=== PATIENT | female | born 1995 | race American Indian/Alaskan Native ===

== ENCOUNTER 2017-04-08 16:47 | Emergency (ER) | payer OTHER ==
[2017-04-08 16:48] VITALS: BMI 36.8
[2017-04-08 17:11] VITALS: O2SAT 100
[2017-04-08] MEDS ORDERED: Albuterol-Ipratrop 3 mg / 0.5 (3 ml) UD IH STA (17:13)
[2017-04-08] MEDS ORDERED: Sodium Chloride 0.9% 1,000 ML IV STA (17:16)
[2017-04-08 17:58] LABS: BASO # 0.01 K/mm3 (0.0-2.0); BASO % 0.1 % (0.0-3.0); EOS # 0.5 (0.0-0.7); EOS % 5.9 % (1.5-5.0); GRAN # 5.03 (1.4-6.5); GRAN % 60.8 % (50.0-68.0); HEMATOCRIT 37.6 % (36.0-48.0); LYMPH # 2.2 (1.2-3.4); LYMPH % 26.6 % (22.0-35.0); MEAN CELL VOLUME 79.5 fl (80.0-105.0); MEAN CORPUSCULAR HEMOGLOBIN 27.5 pg (25.0-35.0); MEAN CORPUSCULAR HGB CONC 34.6 g/dl (31.0-37.0); MEAN PLATELET VOLUME 9.4 fl (7.0-11.0); MONO # 0.6 (0.1-0.6); MONO % 6.6 % (1.0-6.0); RED CELL DISTRIBUTION WIDTH 13.8 % (11.5-14.5); WHITE BLOOD COUNT 8.3 10^3/ul (4.5-11.0)
[2017-04-08 18:00] LABS: ALB/GLOB RATIO 1.1 (1.1-1.8); ALKALINE PHOSPHATASE 87 U/L (38-126); ALT/SGPT 30 U/L (7-56); AST/SGOT 23 U/L (14-36); BILIRUBIN,TOTAL 0.6 mg/dL (0.2-1.3); BLOOD UREA NITROGEN 11 mg/dL (7-21); CALCIUM 9.2 mg/dL (8.4-10.5); CARBON DIOXIDE 27 mmol/L (21-33); CHLORIDE 102 mmol/L (98-107); GFR AFRICAN-AMERICAN > 60; GLUCOSE,RANDOM 88 mg/dL (70-110); POTASSIUM 3.7 mmol/L (3.6-5.0); SODIUM 139 mmol/L (132-148)
[2017-04-08 18:02] LABS: INR 1.06 (0.93-1.08); PARTIAL THROMBOPLASTIN TIME 32.9 Seconds (23.7-30.8)
[2017-04-08 18:13] LABS: TROPONIN I < 0.01 ng/mL
[2017-04-08 18:25] LABS: D DIMER 0.47 mg/L FEU (0-0.50)
[2017-04-08 19:06] VITALS: TEMP 98.9
[2017-04-08 19:18] LABS: URINE BILIRUBIN NEGATIVE (NEGATIVE); URINE BLOOD NEGATIVE (NEGATIVE); URINE GLUCOSE (UA) NEGATIVE (NEGATIVE); URINE KETONE NEGATIVE (NEGATIVE); URINE LEUKOCYTE ESTERASE TRACE Leu/uL (NEGATIVE); URINE PROTEIN TRACE mg/dL (<30 mg/dL)
[2017-04-08 19:27] LABS: URINE APPEARANCE SL CLOUDY (CLEAR); URINE COLOR YELLOW (YELLOW)
[2017-04-08 19:30] LABS: URINE BACTERIA MOD (NEG); URINE EPITHELIAL CELLS MANY /hpf (0-5); URINE RBC 0 - 2 /hpf (0-2)
--- NOTE | 2017-04-08 19:30 | ED PDOC ---
Arrival/HPI - General Chief Complaint: Shortness Of Breath Time Seen by Provider: 04/08/17 16:58 Historian: Patient - History of Present Illness Narrative History of Present Illness (Text): 04/08/17 19:31 A 22 year old female, whose past medical history includes asthma, presents to the emergency department complaining of shortness of breath today, worse with exertion. Patient states since yesterday, she came down with a cold, runny nose , nasal congestion, cough, fatigue and bodyaches. Notes shortness of breath today. Patient reports when shortness of breath when walking, she has a pleuritic type chest pain. Notes symptoms are different from usual asthma symptoms and PMD advised patient to come to the emergency department. Patient had pneumonia and was admitted to the hospital for a week two months ago. Denies any recent travel, sick contacts, diarrhea, nausea, vomiting, dizziness, headache or any other complaints at this time. PMD: Dr. Méndez Symptom Onset: Sudden Symptom Course: Unchanged Activities at Onset: Rest Context: Home Past Medical History - Provider Review Nursing Documentation Reviewed: Yes - Infectious Disease Hx of Infectious Diseases: None - Tetanus Immunization Tetanus Immunization: Unknown - Reproductive Menopause: No - Pulmonary Hx Asthma: Yes Hx Pneumonia: Yes - Musculoskeletal/Rheumatological Hx Falls: No - Psychiatric Hx Depression: No Hx Substance Use: No - Past Surgical History Past Surgical History: Non-Contributing - Surgical History Hx Cholecystectomy: Yes - Anesthesia Hx Anesthesia: Yes Hx Anesthesia Reactions: No - Suicidal Assessment Feels Threatened In Home Enviroment: No Family/Social History - Physician Review Nursing Documentation Reviewed: Yes Family/Social History: No Known Family HX Smoking Status: Light Smoker < 10 Cigarettes Daily Hx Alcohol Use: No Hx Substance Use: No Hx Substance Use Treatment: No Allergies/Home Meds Allergies/Adverse Reactions: Allergies Penicillins Allergy (Severe, Verified 02/15/17 20:56) RASH SEAFOOD Allergy (Severe, Uncoded 02/15/17 20:56) RASH Home Medications: Home Meds Medication Instructions Recorded Confirmed Albuterol HFA [Ventolin HFA 90 2 puff IH [id number] PRN 11/05/16 04/08/17 mcg/actuation (8 g)] Review of Systems - Physician Review All systems were reviewed & negative as marked: Yes - Review of Systems Constitutional: Fatigue, Other (bodyaches) ENT: Rhinorrhea, Sinus Congestion Respiratory: SOB, Cough Cardiovascular: Chest Pain (pleuritic) Gastrointestinal: absent: Diarrhea, Nausea, Vomiting Neurological: absent: Headache, Dizziness Physical Exam Vital Signs Reviewed: Yes Vital Signs Temp Pulse Resp BP Pulse Ox 04/08/17 20:54 82 16 118/62 100 04/08/17 19:05 98.9 F 93 H 23 111/66 100 04/08/17 17:30 18 100 04/08/17 17:10 98.3 F 83 20 113/67 100 Temperature: Afebrile Blood Pressure: Normal Pulse: Regular Respiratory Rate: Normal Appearance: Positive for: Well-Appearing, Non-Toxic, Comfortable Pain Distress: None Mental Status: Positive for: Alert and Oriented X 3 - Systems Exam Head: Present: Atraumatic, Normocephalic Pupils: Present: PERRL Extroacular Muscles: Present: EOMI Conjunctiva: Present: Normal Mouth: Present: Moist Mucous Membranes Neck: Present: Normal Range of Motion Respiratory/Chest: Present: Respiratory Distress (mild), Other (labored breathing). No: Accessory Muscle Use, Wheezes, Rales, Retracting, Rhonchi Cardiovascular: Present: Regular Rate and Rhythm, Normal S1, S2. No: Murmurs Abdomen: Present: Normal Bowel Sounds. No: Tenderness, Distention, Peritoneal Signs Back: Present: Normal Inspection Upper Extremity: Present: Normal Inspection. No: Cyanosis, Edema Lower Extremity: Present: Normal Inspection. No: Edema Neurological: Present: GCS=15, CN II-XII Intact, Speech Normal Skin: Present: Warm, Dry, Normal Color. No: Rashes Psychiatric: Present: Alert, Oriented x 3, Normal Insight, Normal Concentration Medical Decision Making ED Course and Treatment: 04/08/17 19:27 Impression: A 22 year old female with shortness of breath, pleuritic chest pain, runny nose , nasal congestion, cough, fatigue and bodyaches. Plan: -- EKG -- chest xray -- labs -- Urinalysis -- Duoneb, IV fluids -- Reassess and disposition Prior Visits: Notes and results from previous visits were reviewed. Patient was last seen in the emergency department on 02/15/17 for evaluation of cramping lower abdominal discomfort. Progress Notes: EKG: NSR at 76 bpm, (-) acute ST changes, as read by PA. CXR : NAD, as read by PA. Labs reviewed and are wnl, pt's wbc are nl, trop (-), BNP (-), ddimer (-). On re -evaluation, patient is laying in bed in no acute distress. Speaking in full sentences. Lungs clear with no wheezing and no rhonchi. Diagnostic results d/w the patient in great detail. Based on history, exam and diagnostic results plan will be for outpatient follow-up. VS : P 82 BP 118/62 R 16 O2sat 100%RA. Case d/w Dr. Diaz, agrees with outpatient f/u. Patient advised to follow up with primary care physician in 1-2 days without fail. Advised to take medication as prescribed. Return to the emergency room at any time for any new or worsening symptoms. Patient states she fully agrees with and understands discharge instructions. States that she agrees with the plan and disposition. Verbalized and repeated discharge instructions and plan. I have given the patient opportunity to ask any additional questions. - Lab Interpretations Lab Results: 04/08/17 17:40 04/08/17 17:40 Lab Results 04/08/17 19:10: Urine Color Yellow, Urine Appearance Sl cloudy, Urine pH 7.0, Ur Specific [place] 1.015, Urine Protein Trace H, Urine Glucose (UA) Negative, Urine Ketones Negative, Urine Blood Negative, Urine Nitrate Negative, Urine Bilirubin Negative, Urine Urobilinogen 2.0 H, Ur Leukocyte Esterase Trace H, Urine RBC 0 - 2, Urine WBC 5 - 10, Ur Epithelial Cells Many, Urine Bacteria Mod 04/08/17 17:40: Sodium 139, Potassium 3.7, Chloride 102, Carbon Dioxide 27, Anion Gap 14, BUN 11, Creatinine 0.7, Est GFR ( Amer) > 60, Est GFR (Non- Af Amer) > 60, Random Glucose 88, Calcium 9.2, Total Bilirubin 0.6, AST 23, ALT 30, Alkaline Phosphatase 87, Lactate Dehydrogenase 381, Total Creatine Kinase 113, Troponin I < 0.01, NT-Pro-B Natriuret Pep 34.9, Total Protein 8.0, Albumin 4.1, Globulin 3.8, Albumin/Globulin Ratio 1.1 04/08/17 17:40: PT 11.5, INR 1.06, APTT 32.9 H, D-Dimer, Quantitative 0.47 04/08/17 17:40: WBC 8.3, RBC 4.73, Hgb 13.0, Hct 37.6, MCV 79.5 L, MCH 27.5, MCHC 34.6, RDW 13.8, Plt Count 293, MPV 9.4, Gran % 60.8, Lymph % (Auto) 26.6, [place] % (Auto) 6.6 H, Eos % (Auto) 5.9 H, Baso % (Auto) 0.1, Gran # 5.03, Lymph # 2.2, [place] # 0.6, Eos # 0.5, Baso # 0.01 I have reviewed the lab results: Yes - RAD Interpretation Radiology Orders: 04/08/17 17:14 CHEST PORTABLE [RAD] Stat - EKG Interpretation Interpreted by ED Physician: Yes Type: 12 lead EKG - Medication Orders Current Medication Orders: Discontinued Medications Albuterol/Ipratropium (Duoneb 3 Mg/0.5 Mg (3 Ml) Ud) 3 ml IH STAT STA Stop: 04/08/17 17:14 Last Admin: 04/08/17 17:54 Dose: 3 ml Sodium Chloride (Sodium Chloride 0.9%) 1,000 mls @ 1,000 mls/hr IV .Q1H STA Stop: 04/08/17 18:15 Last Admin: 04/08/17 17:54 Dose: 1,000 mls/hr eMAR Start Stop Document 04/08/17 17:54 CNR (Rec: 04/08/17 17:54 CNR [id number]) Intravenous Solution Start Date 04/08/17 Start Time 17:54 - PA / AUTOMATION SALES MANAGER / Resident Statement MD/ has reviewed & agrees with the documentation as recorded. - Scribe Statement The provider has reviewed the documentation as recorded by the Dennis Ochoa Provider Scribe Attestation: All medical record entries made by the Dennis were at my direction and personally dictated by me. I have reviewed the chart and agree that the record accurately reflects my personal performance of the history, physical exam, medical decision making, and the department course for this patient. I have also personally directed, reviewed, and agree with the discharge instructions and disposition. Disposition/Present on Arrival - Present on Arrival Any Indicators Present on Arrival: No History of DVT/PE: No History of Uncontrolled Diabetes: No Urinary Catheter: No History of Decub. Ulcer: No History Surgical Site Infection Following: None - Disposition Have Diagnosis and Disposition been Completed?: Yes Diagnosis: SOB (shortness of breath), Cough Disposition: HOME/ ROUTINE Disposition Time: 20:15 Patient Plan: Discharge Condition: IMPROVED Discharge Instructions (ExitCare): Viral Syndrome (ED), Dyspnea (ED) Print Language: DANISH Additional Instructions: Thank you for letting us take care of you today. You were treated for cough, SOB , likely due to a viral illness. The emergency medical care you received today was directed at your acute symptoms. If you were prescribed any medication, please fill it and take as directed. It may take several days for your symptoms to resolve. Return to the Emergency Department if your symptoms worsen, do not improve, or if you have any other problems. Please contact your doctor in 2 days for re-evaluation and follow up. Bring any paperwork you were given at discharge with you along with any medications you are taking to your follow up visit. Our treatment cannot replace ongoing medical care by a primary care provider (PCP) outside of the emergency department. Thank you for allowing the [facility] team to be part of your care today. If you had an X-Ray : A Radiologist will review the ED reading if any change in treatment is needed we will contact you. Prescriptions: Azithromycin [Z-Rad] 250 mg PO DAILY #6 tab Referrals: Ronda Méndez MD [Primary Care Provider] - Follow up with primary Forms: [employer] ([place]ian), WORK NOTE
[2017-04-08 20:55] VITALS: BP 118/62; PULSE 82; RESP 16
--- NOTE | 2017-04-09 08:34 | RAD ---
HISTORY: Shortness of breath COMPARISON: CT chest without contrast from 02/01/2017. FINDINGS: LUNGS: The lungs are well inflated and clear. PLEURA: No significant pleural effusion identified, no pneumothorax apparent. CARDIOVASCULAR: Normal. OSSEOUS STRUCTURES: No significant abnormalities. VISUALIZED UPPER ABDOMEN: Normal. OTHER FINDINGS: None. IMPRESSION: No active pulmonary disease.
--- NOTE | 2017-04-09 09:32 | CARD ---
APPROVED REPORT EKG Measurement Heart [id number] <Conclusion> Normal sinus rhythm NSSTW changes
== END 2017-04-08 20:55 | disposition home or self-care (01) ==
LOC: ED 16:47
DX: R06.02 Shortness of breath (principal); R05 Cough; J45.909 Unspecified asthma, uncomplicated; Z87.01 Personal history of pneumonia (recurrent); F17.210 Nicotine dependence, cigarettes, uncomplicated
CPT/HCPCS: 71010; 80053; 81001; 82550; 83615; 83880; 84484; 85025; 85378; 85610; 85730; 87086; 93005; 99284; J7040

== ENCOUNTER 2017-11-18 15:20 | Emergency (ER) | payer OTHER ==
[2017-11-18 15:20] VITALS: BMI 36.8
[2017-11-18 16:08] VITALS: RESP 18; TEMP 98.6
--- NOTE | 2017-11-18 16:46 | ED PDOC ---
Arrival/HPI <Tyler Rey - Last Filed: 11/18/17 19:26> - General Historian: Patient - History of Present Illness Time/Duration: Other (6 days) <Marian Garrison - Last Filed: 11/18/17 20:27> - General Chief Complaint: Female Genitourinary Time Seen by Provider: 11/18/17 15:47 - History of Present Illness Narrative History of Present Illness (Text): 11/18/17 16:41 22yr old female presents today with a 6 day history of lower pelvic pain and suprapubic pressure. Patient states she's been having pelvic pain for the past 6 days. She denies nausea vomiting diarrhea constipation. Patient denies dysuria but states that with urination she has relief of the pain and pressure but patient states shortly returns afterwards. pt states she noticed some urinary frequency so she had PMD prescribed abx for UTI 4 days ago. pt states symptoms havent been improving. Patient states she has not been sexually active for the past 8 months. She denies any vaginal bleeding or vaginal discharge. Patient denies changes in appetite. Patient denies chest pain or shortness of breath. Pt also c/o intermittent back pain. No other complaints (Marian Garrison) Past Medical History - Provider Review Nursing Documentation Reviewed: Yes - Travel History Have you recently traveled outside [place] w/in the past 3 mons?: No - Infectious Disease Hx of Infectious Diseases: None - Tetanus Immunization Tetanus Immunization: Unknown - Cardiac Hx Cardiac Disorders: No - Pulmonary Hx Respiratory Disorders: Yes Hx Asthma: Yes Hx Pneumonia: Yes - Neurological Hx Neurological Disorder: No - HEENT Hx HEENT Disorder: No - Renal Hx Renal Disorder: No - Endocrine/Metabolic Hx Endocrine Disorders: No - Hematological/Oncological Hx Blood Disorders: No - Integumentary Hx Dermatological Disorder: No - Musculoskeletal/Rheumatological Hx Musculoskeletal Disorders: No - Gastrointestinal Hx Gastrointestinal Disorders: No - Genitourinary/Gynecological Hx Genitourinary Disorders: No - Psychiatric Hx Psychophysiologic Disorder: No Hx Substance Use: No - Past Surgical History Past Surgical History: Non-Contributing - Surgical History Hx Cholecystectomy: Yes - Anesthesia Hx Anesthesia: Yes Hx Anesthesia Reactions: No - Suicidal Assessment Feels Threatened In Home Enviroment: No <Marian Garrison - Last Filed: 11/18/17 20:27> Family/Social History - Physician Review Nursing Documentation Reviewed: Yes Family/Social History: Unknown Family HX Smoking Status: Light Smoker < 10 Cigarettes Daily Hx Alcohol Use: No Hx Substance Use: No Hx Substance Use Treatment: No <Marian Garrison - Last Filed: 11/18/17 20:27> Allergies/Home Meds <CandidoTyler - Last Filed: 11/18/17 19:26> <Marian Garrison - Last Filed: 11/18/17 20:27> Allergies/Adverse Reactions: Allergies Penicillins Allergy (Severe, Verified 11/18/17 16:08) RASH SEAFOOD Allergy (Severe, Uncoded 11/18/17 16:08) RASH Home Medications: Home Meds Medication Instructions Recorded Confirmed Albuterol HFA [Ventolin HFA 90 2 puff IH [id number] PRN 11/05/16 11/18/17 mcg/actuation (8 g)] Review of Systems - Review of Systems Constitutional: absent: Fatigue, Fevers Respiratory: absent: SOB, Cough Cardiovascular: absent: Chest Pain, Palpitations Gastrointestinal: Abdominal Pain. absent: Constipation, Diarrhea, Nausea, Vomiting Genitourinary Female: absent: Dysuria, Frequency, Hematuria, Urine Output Changes, Vaginal Bleeding, Vaginal Discharge Musculoskeletal: Back Pain. absent: Arthralgias, Neck Pain Skin: absent: Rash, Pruritis Neurological: absent: Headache, Dizziness Psychiatric: absent: Anxiety, Depression, Suicidal Ideation <Marian Garrison - Last Filed: 11/18/17 20:27> Physical Exam Vital Signs Reviewed: Yes Temperature: Afebrile Blood Pressure: Normal Pulse: Regular Respiratory Rate: Normal Appearance: Positive for: Well-Appearing, Non-Toxic, Comfortable Pain Distress: None Mental Status: Positive for: Alert and Oriented X 3 - Systems Exam Head: Present: Atraumatic Mouth: Present: Moist Mucous Membranes Neck: Present: Normal Range of Motion Respiratory/Chest: Present: Clear to Auscultation, Good Air Exchange. No: Respiratory Distress, Accessory Muscle Use Cardiovascular: Present: Regular Rate and Rhythm, Normal S1, S2. No: Murmurs Abdomen: Present: Tenderness (+ suprapubic tenderness), Normal Bowel Sounds. No : Distention, Peritoneal Signs, Rebound, Guarding Genitourinary/Pelvic Exam: Present: Normal External Genitalia, Vaginal Discharge (white vaginal discharge noted), Cervical Motion Tendernes, Cervical os Closed, Other (chaparoned by christiano neely RN). No: Vaginal Bleeding, Vaginal Lesions, Adenexal Tenderness, Adenexal Mass, Odor Back: Present: Normal Inspection. No: CVA Tenderness, Midline Tenderness, Paraspinal Tenderness Neurological: Present: GCS=15, Speech Normal Skin: Present: Warm, Dry, Normal Color. No: Rashes Psychiatric: Present: Alert, Oriented x 3 <Marian Garrison - Last Filed: 11/18/17 20:27> Vital Signs Temp Pulse Resp BP Pulse Ox 11/18/17 16:07 98.6 F 86 18 106/75 96 Medical Decision Making <Tyler Rey - Last Filed: 11/18/17 19:26> <Marian Garrison - Last Filed: 11/18/17 20:27> ED Course and Treatment: 11/18/17 16:56 Patient is nontoxic well appearing with stable vital signs presenting with lower abdominal pain CBC wnl CMP wnl Urinalysis wnl Ultrasound, transvaginal; FINDINGS: UTERUS: Measures 12.3 x 5.6 x 6.9 cm. Normal in size and appearance. No fibroid or other mass lesion seen. ENDOMETRIUM: Measures 11.2 mm in diameter. No ultrasound findings to suggest gestational sac , fluid, debris, mass or polyp or other pathologic process within the endometrium. CERVIX: No cervical abnormality identified. RIGHT OVARY: Measures 1.9 x 2.2 x 3.5 cm. 1.6 x 2 x 1.8 cm solitary heterogeneous solid mass. Nonspecific findings. Most likely etiologies are complex perhaps hemorrhagic cyst. Normal flow. LEFT OVARY: Measures 1.2 x 0.9 x 2.3 cm. No solid mass. Normal flow. Multiple subcentimeter follicles. FREE FLUID: No significant free fluid noted. OTHER FINDINGS: None. IMPRESSION: Unremarkable uterus, endometrial echo complex. Presumed hemorrhagic/debris laden right adnexal cysts. Patient reassessment: pt non toxic well appearing; no distress. stable vitals. gc/ chlamydia cultures pending; PCN allergy ; will given 2g zithromax PO . Discussed all results with patient in depth. Stressed the importance of follow- up with a internal revenue agent within the next 2 days. Advised to return if symptoms worsen or persist or if new concerning symptoms develop. Advised taking antibiotics as prescribed. Patient verbalizes understanding of discharge instructions and need for immediate followup. all aspects of this case were discussed the attending of record. Impression: pelvic pain, ovarian cyst, urinary frequency Motrin every 6 hours as needed for pain Doxycycline 1 tablet twice daily 14 days Follow up with primary care physician within the next 2 days Follow-up with her internal revenue agent within the next 2 days Return immediately if symptoms worsen persist or if new symptoms develop: High fevers, increasing pain, vomiting, diarrhea or any other concerning symptoms develop (Marian Garrison) - Lab Interpretations Lab Results: 11/18/17 17:01 11/18/17 17:01 Lab Results 11/18/17 17:01: WBC 7.5, RBC 4.92, Hgb 12.8, Hct 38.9, MCV 79.1 L, MCH 26.0, MCHC 32.9, RDW 14.2, Plt Count 305, MPV 9.7, Gran % 51.0, Lymph % (Auto) 39.4 H , [place] % (Auto) 6.1 H, Eos % (Auto) 3.4, Baso % (Auto) 0.1, Gran # 3.84, Lymph # (Auto) 3.0, [place] # (Auto) 0.5, Eos # (Auto) 0.3, Baso # (Auto) 0.01 11/18/17 17:01: Sodium 142, Potassium 3.8, Chloride 102, Carbon Dioxide 28, Anion Gap 17, BUN 8, Creatinine 0.8, Est GFR ( Amer) > 60, Est GFR (Non- Af Amer) > 60, Random Glucose 96, Calcium 9.3, Total Bilirubin 0.4, AST 23, ALT 26, Alkaline Phosphatase 78, Total Protein 8.2, Albumin 4.3, Globulin 3.9, Albumin/Globulin Ratio 1.1 11/18/17 17:01: Urine Color Yellow, Urine Appearance Clear, Urine pH 6.5, Ur Specific [place] 1.015, Urine Protein Trace H, Urine Glucose (UA) Negative, Urine Ketones Negative, Urine Blood Negative, Urine Nitrate Negative, Urine Bilirubin Negative, Urine Urobilinogen 0.2, Ur Leukocyte Esterase Negative, Urine RBC 0 - 2, Urine WBC 0 - 2, Ur Epithelial Cells 4 - 5 - RAD Interpretation Radiology Orders: 11/18/17 16:40 TRANSVAGINAL [US] Stat - Medication Orders Current Medication Orders: Discontinued Medications Azithromycin (Zithromax) 2,000 mg PO STAT STA PRN Reason: Protocol Stop: 11/18/17 20:05 Ketorolac Tromethamine (Toradol) 60 mg IM STAT STA Stop: 11/18/17 19:28 Last Admin: 11/18/17 19:43 Dose: 60 mg MAR Pain Assessment Document 11/18/17 19:43 MS (Rec: 11/18/17 19:44 [facility]) Pain Reassessment Is this a pain reassessment? No Sleep Is patient sleeping during reassessment? 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 <Tyler Rey - Last Filed: 11/18/17 19:26> Disposition/Present on Arrival <Tyler Rey - Last Filed: 11/18/17 19:26> - Present on Arrival Any Indicators Present on Arrival: No History of DVT/PE: No History of Uncontrolled Diabetes: No Urinary Catheter: No History of Decub. Ulcer: No History Surgical Site Infection Following: None - Disposition Have Diagnosis and Disposition been Completed?: Yes Disposition Time: 20:24 Patient Plan: Discharge <Marian Garrison - Last Filed: 11/18/17 20:27> - Disposition Diagnosis: Ovarian cyst, Pelvic pain, Vaginal discharge Disposition: HOME/ ROUTINE Condition: GOOD Discharge Instructions (ExitCare): Ovarian Cyst (DC), Acute Abdomen (Belly Pain ), Adult (DC), Vaginal Discharge in Adults Additional Instructions: Motrin every 6 hours as needed for pain Doxycycline 1 tablet twice daily 14 days Follow up with primary care physician within the next 2 days Follow-up with her internal revenue agent within the next 2 days Return immediately if symptoms worsen persist or if new symptoms develop: High fevers, increasing pain, vomiting, diarrhea or any other concerning symptoms develop Prescriptions: Doxycycline Hyclate 100 mg PO BID #28 capsule Ibuprofen [Motrin] 600 mg PO Q6H PRN #20 tab PRN Reason: pain/fever reduction Referrals: Ronda Méndez MD [Primary Care Provider] - Follow up with primary Debbie Lawrence MD [Staff Provider] - [facility] - Follow up with primary Forms: [employer] (Slovenian), WORK NOTE
[2017-11-18 17:10] LABS: PH,URINE 6.5 (4.7-8.0); URINE BILIRUBIN NEGATIVE (NEGATIVE); URINE BLOOD NEGATIVE (NEGATIVE); URINE GLUCOSE (UA) NEGATIVE (NEGATIVE); URINE LEUKOCYTE ESTERASE NEGATIVE Leu/uL (NEGATIVE); URINE PROTEIN TRACE mg/dL (<30 mg/dL); URINE UROBILINOGEN 0.2 E.U./dL (<1 E.U./dL)
[2017-11-18 17:12] LABS: BASO # 0.01 K/mm3 (0.0-2.0); BASO % 0.1 % (0.0-3.0); EOS # 0.3 (0.0-0.7); EOS % 3.4 % (1.5-5.0); GRAN # 3.84 (1.4-6.5); HEMOGLOBIN 12.8 g/dL (12.0-16.0); LYMPH % 39.4 % (22.0-35.0); MEAN CELL VOLUME 79.1 fl (80.0-105.0); MEAN CORPUSCULAR HGB CONC 32.9 g/dl (31.0-37.0); MEAN PLATELET VOLUME 9.7 fl (7.0-11.0); MONO # 0.5 (0.1-0.6); MONO % 6.1 % (1.0-6.0); RBC 4.92 10^6/uL (3.5-6.1); RED CELL DISTRIBUTION WIDTH 14.2 % (11.5-14.5); WHITE BLOOD COUNT 7.5 10^3/ul (4.5-11.0)
[2017-11-18 17:13] LABS: URINE COLOR YELLOW (YELLOW)
[2017-11-18 17:14] LABS: URINE APPEARANCE CLEAR (CLEAR)
[2017-11-18 17:21] LABS: URINE RBC 0 - 2 /hpf (0-2)
[2017-11-18 17:22] LABS: URINE WBC 0 - 2 /hpf (0-6)
[2017-11-18 17:27] LABS: ALB/GLOB RATIO 1.1 (1.1-1.8); ALBUMIN 4.3 g/dL (3.0-4.8); ALT/SGPT 26 U/L (7-56); AST/SGOT 23 U/L (14-36); BLOOD UREA NITROGEN 8 mg/dL (7-21); CALCIUM 9.3 mg/dL (8.4-10.5); GFR AFRICAN-AMERICAN > 60; GFR NON-AFRICAN AMERICAN > 60
--- NOTE | 2017-11-18 18:13 | US ---
HISTORY: Pelvic pain. Menstrual status: LMP 11/04/2017. Irregular cycles. COMPARISON: None available. TECHNIQUE: Transvaginal only. Real -time technique with 2D, duplex and color Doppler FINDINGS: UTERUS: Measures 12.3 x 5.6 x 6.9 cm. Normal in size and appearance. No fibroid or other mass lesion seen. ENDOMETRIUM: Measures 11.2 mm in diameter. No ultrasound findings to suggest gestational sac, fluid, debris, mass or polyp or other pathologic process within the endometrium. CERVIX: No cervical abnormality identified. RIGHT OVARY: Measures 1.9 x 2.2 x 3.5 cm. 1.6 x 2 x 1.8 cm solitary heterogeneous solid mass. Nonspecific findings. Most likely etiologies are complex perhaps hemorrhagic cyst. Normal flow. LEFT OVARY: Measures 1.2 x 0.9 x 2.3 cm. No solid mass. Normal flow. Multiple subcentimeter follicles. FREE FLUID: No significant free fluid noted. OTHER FINDINGS: None. IMPRESSION: Unremarkable uterus, endometrial echo complex. Presumed hemorrhagic/debris laden right adnexal cysts.
[2017-11-18 22:08] VITALS: BP 112/72; PULSE 82; O2SAT 100
== END 2017-11-18 20:45 | disposition home or self-care (01) ==
LOC: ED 15:20
DX: N83.201 Unspecified ovarian cyst, right side (principal); N89.8 Other specified noninflammatory disorders of vagina; R10.2 Pelvic and perineal pain; Z90.49 Acquired absence of other specified parts of digestive tract
CPT/HCPCS: 76830; 80053; 81001; 85025; 87086; 96372; 99283; J1885

== ENCOUNTER 2018-07-21 08:36 | Emergency (ER) | payer OTHER ==
[2018-07-21 09:29] VITALS: BMI 38.9
[2018-07-21 09:33] VITALS: RESP 18; TEMP 98.4; O2SAT 98
[2018-07-21] MEDS ORDERED: Sodium Chloride 0.9% 1,000 ML IV STA (09:45)
--- NOTE | 2018-07-21 09:53 | ED PDOC ---
Arrival/HPI - General Historian: Patient - History of Present Illness Narrative History of Present Illness (Text): 07/21/18 11:29 23-year-old female with a history of intermittent headaches 2 months. Patient states the headaches are usually frontal they're associated with photophobia dizziness with some nausea and vomiting at times. Patient denies chest pain or shortness of breath. Denies any trauma or injury. Patient states she was seen by her primary care physician and told to see an eye doctor. Patient denies a family history of migraines. Patient states this headache started yesterday and she's been taking Excedrin without improvement. Patient states this is the same headache that she has been having for the past 2 months. Patient states the Excedrin does not help with her headaches. Patient denies chest pain or shortness of breath. No abdominal pain. She denies nasal congestion or sore throat. <Marian Garrison - Last Filed: 07/21/18 16:56> <Kanu Lai - Last Filed: 07/21/18 16:58> - General Chief Complaint: Headache Time Seen by Provider: 07/21/18 09:01 Past Medical History - Provider Review Nursing Documentation Reviewed: Yes - Travel History Have you recently traveled outside [place] w/in the past 3 mons?: No - Infectious Disease Hx of Infectious Diseases: None - Tetanus Immunization Tetanus Immunization: Unknown - Cardiac Hx Cardiac Disorders: No - Pulmonary Hx Respiratory Disorders: Yes Hx Asthma: Yes Hx Pneumonia: Yes - Neurological Hx Neurological Disorder: No - HEENT Hx HEENT Disorder: No - Renal Hx Renal Disorder: No - Endocrine/Metabolic Hx Endocrine Disorders: No - Hematological/Oncological Hx Blood Disorders: No - Integumentary Hx Dermatological Disorder: No - Musculoskeletal/Rheumatological Hx Musculoskeletal Disorders: No - Gastrointestinal Hx Gastrointestinal Disorders: No - Genitourinary/Gynecological Hx Genitourinary Disorders: No - Psychiatric Hx Psychophysiologic Disorder: No Hx Substance Use: No - Past Surgical History Past Surgical History: Non-Contributing - Surgical History Hx Cholecystectomy: Yes - Anesthesia Hx Anesthesia: Yes Hx Anesthesia Reactions: No Hx Malignant Hyperthermia: No - Suicidal Assessment Feels Threatened In Home Enviroment: No <Marian Garrison - Last Filed: 07/21/18 16:56> Family/Social History - Physician Review Nursing Documentation Reviewed: Yes Family/Social History: Unknown Family HX Smoking Status: Light Smoker < 10 Cigarettes Daily Hx Alcohol Use: No Hx Substance Use: No Hx Substance Use Treatment: No <VianeyMarian chi Rahul - Last Filed: 07/21/18 16:56> Allergies/Home Meds <Marian Garrison Rahul - Last Filed: 07/21/18 16:56> <TolerannKanu - Last Filed: 07/21/18 16:58> Allergies/Adverse Reactions: Allergies Penicillins Allergy (Severe, Verified 07/21/18 09:33) RASH SEAFOOD Allergy (Severe, Uncoded 07/21/18 09:33) RASH Review of Systems - Review of Systems Constitutional: absent: Fatigue, Fevers Eyes: Photophobia ENT: absent: Sore Throat, Sinus Congestion Respiratory: absent: SOB, Cough Cardiovascular: absent: Chest Pain, Palpitations Gastrointestinal: Nausea, Vomiting. absent: Abdominal Pain, Constipation, Diarrhea Genitourinary Female: absent: Dysuria, Frequency, Hematuria Musculoskeletal: absent: Arthralgias, Back Pain Skin: absent: Rash, Pruritis Neurological: Headache, Dizziness Psychiatric: absent: Anxiety, Depression <Marian Garrison Rahul - Last Filed: 07/21/18 16:56> Physical Exam Vital Signs Reviewed: Yes Vital Signs Temp Pulse Resp BP Pulse Ox 07/21/18 09:28 98.4 F 66 18 102/71 98 Temperature: Afebrile Blood Pressure: Normal Pulse: Regular Respiratory Rate: Normal Appearance: Positive for: Well-Appearing, Non-Toxic, Comfortable Pain Distress: None Mental Status: Positive for: Alert and Oriented X 3 - Systems Exam Head: Present: Atraumatic Pupils: Present: PERRL Extroacular Muscles: Present: EOMI Conjunctiva: Present: Normal Ears: Present: Normal, NORMAL TM Mouth: Present: Moist Mucous Membranes Pharnyx: Present: Normal Nose (External): Present: Atraumatic Nose (Internal): Present: Normal Inspection Neck: Present: Normal Range of Motion Respiratory/Chest: Present: Clear to Auscultation, Good Air Exchange. No: Respiratory Distress, Accessory Muscle Use Cardiovascular: Present: Regular Rate and Rhythm, Normal S1, S2. No: Murmurs Abdomen: No: Tenderness, Rebound, Guarding Upper Extremity: Present: Normal ROM Lower Extremity: Present: Normal ROM Neurological: Present: GCS=15 Skin: Present: Warm, Dry, Normal Color. No: Rashes Psychiatric: Present: Alert, Oriented x 3 <Marian Garrison - Last Filed: 07/21/18 16:56> Vital Signs Temp Pulse Resp BP Pulse Ox 07/21/18 14:26 71 18 123/75 98 07/21/18 12:01 72 18 144/94 H 98 07/21/18 09:28 98.4 F 66 18 102/71 98 <Kanu Lai - Last Filed: 07/21/18 16:58> Medical Decision Making ED Course and Treatment: 07/21/18 11:31 23-year-old female with 2 month history of intermittent headaches CBC wnl CMP k:3.5 CAT scan of the head:FINDINGS: HEMORRHAGE: No intracranial hemorrhage. BRAIN: No mass effect or edema. No atrophy or chronic microvascular ischemic changes. VENTRICLES: Unremarkable. No hydrocephalus. CALVARIUM: Unremarkable. PARANASAL SINUSES: Unremarkable as visualized. No significant inflammatory changes. MASTOID AIR CELLS: Unremarkable as visualized. No inflammatory changes. OTHER FINDINGS: None. IMPRESSION: Normal CT of the Head. Patient given Toradol and Reglan IV Normal saline IV bolus. Patient reassessment: Patient is nontoxic well-appearing in no distress with stable vital signs feeling better after medications. I discussed all results in depth with patient advised follow-up with the neurologist within the next 2 days. Advised immediate return if symptoms worsen persist or if new concerning symptoms develop. Advised follow-up with the PMD. Patient verbalizes understanding of discharge instructions and need for immediate followup. all aspects of this case were discussed the attending of record. Impression: Headache Motrin every 6 hours as needed for pain Follow-up with primary care physician within the next 2 days Follow-up with the neurologist within the next 2 days Return if symptoms worsen persist or if new concerning symptoms develop - RAD Interpretation Radiology Orders: 07/21/18 09:45 HEAD W/O CONTRAST [CT] Stat - Medication Orders Current Medication Orders: Sodium Chloride (Sodium Chloride 0.9%) 1,000 mls @ 999 mls/hr IV .Q1H1M STA Stop: 07/21/18 10:45 <Marian Garrison - Last Filed: 07/21/18 16:56> - Lab Interpretations Lab Results: Total Bilirubin 0.6 mg/dL (0.2-1.3) 07/21/18 11:45 AST 25 U/L (14-36) 07/21/18 11:45 ALT 29 U/L (7-56) 07/21/18 11:45 Alkaline Phosphatase 96 U/L (38-126) 07/21/18 11:45 Total Protein 8.4 g/dL (5.8-8.3) H 07/21/18 11:45 Albumin 4.2 g/dL (3.0-4.8) 07/21/18 11:45 Globulin 4.2 gm/dL 07/21/18 11:45 Albumin/Globulin Ratio 1.0 (1.1-1.8) L 07/21/18 11:45 Urine Color Yellow (YELLOW) 07/21/18 09:49 Urine Appearance Clear (CLEAR) 07/21/18 09:49 Urine pH 7.5 (4.7-8.0) 07/21/18 09:49 Ur Specific [place] 1.010 (1.005-1.035) 07/21/18 09:49 Urine Protein Negative mg/dL (<30 mg/dL) 07/21/18 09:49 Urine Glucose (UA) Negative mg/dL (NEGATIVE) 07/21/18 09:49 Urine Ketones Negative mg/dL (NEGATIVE) 07/21/18 09:49 Urine Blood Negative (NEGATIVE) 07/21/18 09:49 Urine Nitrate Negative (NEGATIVE) 07/21/18 09:49 Urine Bilirubin Negative (NEGATIVE) 07/21/18 09:49 Urine Urobilinogen 0.2 E.U./dL (<1 E.U./dL) 07/21/18 09:49 Ur Leukocyte Esterase Trace Jaya/uL (NEGATIVE) H 07/21/18 09:49 Urine RBC 0 - 2 /hpf (0-2) 07/21/18 09:49 Urine WBC 1 - 3 /hpf (0-6) 07/21/18 09:49 Ur Epithelial Cells 4 - 5 /hpf (0-5) 07/21/18 09:49 Urine Bacteria Few /hpf (NONE) 07/21/18 09:49 - RAD Interpretation Radiology Orders: 07/21/18 09:45 HEAD W/O CONTRAST [CT] Stat - Medication Orders Current Medication Orders: Discontinued Medications Sodium Chloride (Sodium Chloride 0.9%) 1,000 mls @ 999 mls/hr IV .Q1H1M STA Stop: 07/21/18 10:45 Last Admin: 07/21/18 11:53 Dose: 999 mls/hr eMAR Start Stop Document 07/21/18 11:53 LA (Rec: 07/21/18 11:53 LA [id number]) Intravenous Solution Start Date 07/21/18 Start Time 11:53 End Date 07/21/18 End time 12:54 Total Infusion Time 61 Ketorolac Tromethamine (Toradol) 30 mg IVP STAT STA Stop: 07/21/18 10:36 Last Admin: 07/21/18 11:50 Dose: 30 mg MAR Pain Assessment Document 07/21/18 11:50 LA (Rec: 07/21/18 11:52 LA [id number]) Pain Reassessment Is this a pain reassessment? No Presence of Pain Presence of Pain Yes Pain Scale Used Protocol: PSCALES Pain Scale Used Numeric Location Pain Location [employer] Description Description Intermittent Intensity of Pain at present 6 IVP Administration Document 07/21/18 11:50 LA (Rec: 07/21/18 11:52 LA [id number]) Charges for Administration # of IVP Administrations 1 Metoclopramide HCl (Reglan) 10 mg IVP STAT STA Stop: 07/21/18 10:36 Last Admin: 07/21/18 11:52 Dose: 10 mg IVP Administration Document 07/21/18 11:52 LA (Rec: 07/21/18 11:52 LA [id number]) Charges for Administration # of IVP Administrations 1 <Kanu Lai - Last Filed: 07/21/18 16:58> - PA / HOT DOG VENDOR / Resident Statement / has reviewed & agrees with the documentation as recorded. <Kanu Lai - Last Filed: 07/21/18 16:58> Disposition/Present on Arrival - Present on Arrival Any Indicators Present on Arrival: No History of DVT/PE: No History of Uncontrolled Diabetes: No Urinary Catheter: No History of Decub. Ulcer: No History Surgical Site Infection Following: None - Disposition Have Diagnosis and Disposition been Completed?: Yes Disposition Time: 09:53 Patient Plan: Discharge <Marian Garrison - Last Filed: 07/21/18 16:56> <Kanu Lai - Last Filed: 07/21/18 16:58> - Disposition Diagnosis: Headache Disposition: HOME/ ROUTINE Condition: GOOD Discharge Instructions (ExitCare): Headache, Adult Additional Instructions: Motrin every 6 hours as needed for pain Follow-up with primary care physician within the next 2 days Follow-up with the neurologist within the next 2 days Return if symptoms worsen persist or if new concerning symptoms develop Prescriptions: Ibuprofen [Motrin] 600 mg PO Q6H PRN #20 tab PRN Reason: pain/fever reduction Referrals: Ronda Méndez MD [Primary Care Provider] - Follow up with primary Saw Herbert MD [Staff Provider] - Follow up with primary Forms: [employer] (Bulgarian), WORK NOTE
[2018-07-21 11:56] LABS: BASO # 0.01 K/mm3 (0.0-2.0); BASO % 0.1 % (0.0-3.0); EOS # 0.3 (0.0-0.7); EOS % 3.7 % (1.5-5.0); GRAN # 3.97 (1.4-6.5); GRAN % 50.7 % (50.0-68.0); HEMOGLOBIN 13.4 g/dL (12.0-16.0); LYMPH # 3.1 (1.2-3.4); LYMPH % 39.8 % (22.0-35.0); MEAN CORPUSCULAR HEMOGLOBIN 26.9 pg (25.0-35.0); MEAN CORPUSCULAR HGB CONC 33.2 g/dl (31.0-37.0); MEAN PLATELET VOLUME 9.2 fl (7.0-11.0); MONO # 0.5 (0.1-0.6); MONO % 5.7 % (1.0-6.0); RBC 4.99 10^6/uL (3.5-6.1); RED CELL DISTRIBUTION WIDTH 14.2 % (11.5-14.5); WHITE BLOOD COUNT 7.8 10^3/uL (4.5-11.0)
[2018-07-21 12:09] LABS: PH,URINE 7.5 (4.7-8.0); URINE BILIRUBIN NEGATIVE (NEGATIVE); URINE BLOOD NEGATIVE (NEGATIVE); URINE GLUCOSE (UA) NEGATIVE (NEGATIVE); URINE LEUKOCYTE ESTERASE TRACE Leu/uL (NEGATIVE); URINE PROTEIN NEGATIVE mg/dL (<30 mg/dL); URINE UROBILINOGEN 0.2 E.U./dL (<1 E.U./dL)
[2018-07-21 12:10] LABS: URINE APPEARANCE CLEAR (CLEAR); URINE COLOR YELLOW (YELLOW)
[2018-07-21 12:16] LABS: URINE BACTERIA FEW /hpf; URINE RBC 0 - 2 /hpf (0-2)
--- NOTE | 2018-07-21 12:46 | CT ---
Date of service: 07/21/2018 PROCEDURE: CT HEAD WITHOUT CONTRAST. HISTORY: headache intermittent for months COMPARISON: None available. TECHNIQUE: Axial computed tomography images were obtained through the head/brain without intravenous contrast. Radiation dose: Total exam DLP = 901.73 mGy-cm. This CT exam was performed using one or more of the following dose reduction techniques: Automated exposure control, adjustment of the mA and/or kV according to patient size, and/or use of iterative reconstruction technique. FINDINGS: HEMORRHAGE: No intracranial hemorrhage. BRAIN: No mass effect or edema. No atrophy or chronic microvascular ischemic changes. VENTRICLES: Unremarkable. No hydrocephalus. CALVARIUM: Unremarkable. PARANASAL SINUSES: Unremarkable as visualized. No significant inflammatory changes. MASTOID AIR CELLS: Unremarkable as visualized. No inflammatory changes. OTHER FINDINGS: None. IMPRESSION: Normal CT of the Head.
[2018-07-21 14:21] LABS: ALBUMIN 4.2 g/dL (3.0-4.8); ALT/SGPT 29 U/L (7-56); AST/SGOT 25 U/L (14-36); BLOOD UREA NITROGEN 8 mg/dL (7-21); CALCIUM 9.2 mg/dL (8.4-10.5); GFR NON-AFRICAN AMERICAN > 60
[2018-07-21 14:31] VITALS: BP 123/75; PULSE 71
--- NOTE | 2018-07-21 18:10 | CARD ---
APPROVED REPORT Date of service: 07/21/2018 EKG Measurement Heart [id number] <Conclusion> Normal sinus rhythm Normal Electrocardiogram
== END 2018-07-21 14:52 | disposition home or self-care (01) ==
LOC: ED 08:36
DX: R51 Headache (principal); J45.909 Unspecified asthma, uncomplicated; F17.210 Nicotine dependence, cigarettes, uncomplicated
CPT/HCPCS: 70450; 80053; 81001; 85025; 87086; 93005; 96361; 96374; 96375; 99285; J1885; J2765; J7030

== ENCOUNTER 2018-11-24 13:25 | Observation (INO) | payer OTHER ==
[2018-11-24 13:32] VITALS: BMI 43.5
[2018-11-24] MEDS ORDERED: Albuterol-Ipratrop 3 mg / 0.5 (3 ml) UD IH STA (14:08)
[2018-11-24 14:40] LABS: BASO # 0.01 K/mm3 (0.0-2.0); BASO % 0.1 % (0.0-3.0); EOS # 0.2 (0.0-0.7); EOS % 2.5 % (1.5-5.0); HEMOGLOBIN 12.2 g/dL (12.0-16.0); LYMPH # 2.3 (1.2-3.4); LYMPH % 24.3 % (22.0-35.0); MEAN CELL VOLUME 78.9 fl (80.0-105.0); MEAN CORPUSCULAR HEMOGLOBIN 25.5 pg (25.0-35.0); MEAN CORPUSCULAR HGB CONC 32.4 g/dl (31.0-37.0); MONO # 0.5 (0.1-0.6); MONO % 4.8 % (1.0-6.0); RBC 4.78 10^6/uL (3.5-6.1); RED CELL DISTRIBUTION WIDTH 14.6 % (11.5-14.5); WHITE BLOOD COUNT 9.5 10^3/uL (4.5-11.0)
[2018-11-24 14:40] LABS: URINE BILIRUBIN NEGATIVE (NEGATIVE); URINE BLOOD NEGATIVE (NEGATIVE); URINE GLUCOSE (UA) NEGATIVE (NEGATIVE); URINE LEUKOCYTE ESTERASE SMALL Leu/uL (NEGATIVE); URINE PROTEIN TRACE mg/dL (<30 mg/dL); URINE UROBILINOGEN 0.2 E.U./dL (<1 E.U./dL)
[2018-11-24 14:41] LABS: ALBUMIN 3.9 g/dL (3.0-4.8); ALT/SGPT 20 U/L (7-56); AST/SGOT 27 U/L (14-36); BLOOD UREA NITROGEN 7 mg/dL (7-21); CALCIUM 9.2 mg/dL (8.4-10.5); GFR NON-AFRICAN AMERICAN > 60
--- NOTE | 2018-11-24 14:51 | RAD ---
Date of service: 11/24/2018 HISTORY: cough/sob COMPARISON: 04/08/2017. FINDINGS: LUNGS: The lungs are well inflated and clear. PLEURA: No pleural effusions or pneumothorax. CARDIOVASCULAR: The heart is normal in size. No aortic atherosclerotic calcifications present. OSSEOUS STRUCTURES: Within normal limits for the patient's age. VISUALIZED UPPER ABDOMEN: Normal. OTHER FINDINGS: None. IMPRESSION: No active pulmonary disease.
[2018-11-24 14:53] LABS: TROPONIN I < 0.01 ng/mL
[2018-11-24 15:08] LABS: URINE APPEARANCE CLEAR (CLEAR); URINE COLOR YELLOW (YELLOW)
[2018-11-24 15:11] LABS: URINE BACTERIA MOD /hpf; URINE RBC 0 - 2 /hpf (0-2)
--- NOTE | 2018-11-24 15:21 | ED PDOC ---
Arrival/HPI - General Chief Complaint: Shortness Of Breath Time Seen by Provider: 11/24/18 13:31 Historian: Patient - History of Present Illness Narrative History of Present Illness (Text): 11/24/18 15:19 23yr old female with hx of asthma, c/o cough, shortness of breath and CARVER worsening over the past 4 days. denies fever/chills at home. c/o dry cough. pt c/o chest pressure. pt denies abdominal pain. pt states she has been using her nebulizer at home without improvement in symptoms. pt states she feels worsening CARVER. pt admits to smoking. c/o dizziness. no vomiting/diarrhea. no back pain. sent in by her PMD for evaluation. Past Medical History - Provider Review Nursing Documentation Reviewed: Yes Primary Care Provider: Ronda Méndez - Travel History Have you recently traveled outside [place] w/in the past 3 mons?: No - Infectious Disease Hx of Infectious Diseases: None - Tetanus Immunization Tetanus Immunization: Unknown - Cardiac Hx Cardiac Disorders: No - Pulmonary Hx Respiratory Disorders: Yes Hx Asthma: Yes Hx Pneumonia: Yes - Neurological Hx Neurological Disorder: No - HEENT Hx HEENT Disorder: No - Renal Hx Renal Disorder: No - Endocrine/Metabolic Hx Endocrine Disorders: No - Hematological/Oncological Hx Blood Disorders: No - Integumentary Hx Dermatological Disorder: No - Musculoskeletal/Rheumatological Hx Musculoskeletal Disorders: No - Gastrointestinal Hx Gastrointestinal Disorders: No - Genitourinary/Gynecological Hx Genitourinary Disorders: No - Psychiatric Hx Psychophysiologic Disorder: No Hx Substance Use: No - Past Surgical History Past Surgical History: Non-Contributing - Surgical History Hx Cholecystectomy: Yes - Anesthesia Hx Anesthesia: Yes Hx Anesthesia Reactions: No Hx Malignant Hyperthermia: No - Suicidal Assessment Feels Threatened In Home Enviroment: No Family/Social History - Physician Review Nursing Documentation Reviewed: Yes Family/Social History: Unknown Family HX Smoking Status: Light Smoker < 10 Cigarettes Daily Hx Alcohol Use: No Hx Substance Use: No Hx Substance Use Treatment: No Allergies/Home Meds Allergies/Adverse Reactions: Allergies Penicillins Allergy (Severe, Verified 11/24/18 13:32) RASH SEAFOOD Allergy (Severe, Uncoded 11/24/18 13:32) RASH Home Medications: Home Meds Medication Instructions Recorded Confirmed Albuterol Sulfate [Albuterol 1 puff IH PRN PRN 11/24/18 11/24/18 Sulfate Hfa] Mometasone/Formoterol [Dulera 100 1 puff IH PRN PRN 11/24/18 11/24/18 Mcg/5 Mcg Inhaler] Review of Systems - Review of Systems Constitutional: absent: Fatigue, Fevers ENT: Sinus Congestion Respiratory: SOB, Cough Cardiovascular: Chest Pain, Palpitations Gastrointestinal: absent: Abdominal Pain, Nausea, Vomiting Musculoskeletal: absent: Arthralgias, Back Pain, Neck Pain Skin: absent: Rash, Pruritis Neurological: absent: Headache, Dizziness Psychiatric: absent: Anxiety, Depression, Suicidal Ideation Physical Exam Vital Signs Reviewed: Yes Vital Signs Temp Pulse Resp BP Pulse Ox 11/24/18 15:09 92 H 18 114/75 99 11/24/18 14:04 95 H 17 99 11/24/18 13:46 100 11/24/18 13:34 97.8 F 103 H 22 116/76 100 Temperature: Afebrile Blood Pressure: Normal Pulse: Tachycardic Respiratory Rate: Normal Appearance: Positive for: Well-Appearing, Non-Toxic, Comfortable Pain Distress: None Mental Status: Positive for: Alert and Oriented X 3 - Systems Exam Head: Present: Atraumatic Conjunctiva: Present: Normal Mouth: Present: Moist Mucous Membranes Nose (External): Present: Atraumatic Nose (Internal): Present: Normal Inspection Neck: Present: Normal Range of Motion Respiratory/Chest: Present: Clear to Auscultation, Tachypneic. No: Good Air Exchange, Respiratory Distress, Accessory Muscle Use, Rhonchi Cardiovascular: Present: Tachycardic. No: Murmurs Abdomen: No: Tenderness, Distention, Rebound, Guarding Back: Present: Normal Inspection. No: CVA Tenderness Upper Extremity: Present: Normal ROM Lower Extremity: Present: Normal ROM. No: Edema, CALF TENDERNESS Neurological: Present: GCS=15, Speech Normal Skin: Present: Warm, Dry, Normal Color. No: Rashes Psychiatric: Present: Alert, Oriented x 3 Medical Decision Making ED Course and Treatment: 11/24/18 15:22 23yr old female with SOB/CARVER/CP x [address] in by dr. méndez. cbc; wnl cmp; wnl trop; wnl dimer; elevated cxr; wnl CTA; FINDINGS: PULMONARY ARTERIES: There are no filling defects in the pulmonary arteries to suggest acute pulmonary embolism. AORTA: No acute findings. No thoracic aortic aneurysm. No aortic atherosclerotic calcification or mural plaque present. LUNGS: The lungs are well inflated and clear. No nodule, mass or pulmonary consolidation. PLEURAL SPACES: No effusion or pneumothorax. HEART: No cardiomegaly. No significant pericardial effusion. LYMPH NODES: No pathologic mediastinal or hilar lymphadenopathy. BONES, CHEST WALL: Within normal limits for the patient's age. No fracture or destructive lesion OTHER FINDINGS: None. IMPRESSION: No CTA evidence for acute pulmonary embolism. Clear lungs. asa given. duoneb and solumedrol given. pt reassessment; lungs CTA> pt still c/o SOB, CARVER, CP case discussed with dr. Méndez; will admit observational status to remote tele for CP and SOB/CARVER. 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 11/24/18 17:08 - Lab Interpretations Lab Results: D-Dimer, Quantitative 292 ng/mlDDU (0-243) H 11/24/18 14:20 Troponin I < 0.01 ng/mL 11/24/18 14:20 Total Bilirubin 0.5 mg/dL (0.2-1.3) 11/24/18 14:20 AST 27 U/L (14-36) 11/24/18 14:20 ALT 20 U/L (7-56) 11/24/18 14:20 Alkaline Phosphatase 79 U/L (38-126) 11/24/18 14:20 Total Protein 8.1 g/dL (5.8-8.3) 11/24/18 14:20 Albumin 3.9 g/dL (3.0-4.8) 11/24/18 14:20 Globulin 4.1 gm/dL 11/24/18 14:20 Albumin/Globulin Ratio 1.0 (1.1-1.8) L 11/24/18 14:20 Urine Color Yellow (YELLOW) 11/24/18 14:30 Urine Appearance Clear (CLEAR) 11/24/18 14:30 Urine pH 6.0 (4.7-8.0) 11/24/18 14:30 Ur Specific [place] 1.015 (1.005-1.035) 11/24/18 14:30 Urine Protein Trace mg/dL (<30 mg/dL) H 11/24/18 14:30 Urine Glucose (UA) Negative mg/dL (NEGATIVE) 11/24/18 14:30 Urine Ketones Negative mg/dL (NEGATIVE) 11/24/18 14:30 Urine Blood Negative (NEGATIVE) 11/24/18 14:30 Urine Nitrate Negative (NEGATIVE) 11/24/18 14:30 Urine Bilirubin Negative (NEGATIVE) 11/24/18 14:30 Urine Urobilinogen 0.2 E.U./dL (<1 E.U./dL) 11/24/18 14:30 Ur Leukocyte Esterase Small Jaya/uL (NEGATIVE) H 11/24/18 14:30 Urine RBC 0 - 2 /hpf (0-2) 11/24/18 14:30 Urine WBC 5 - 10 /hpf (0-6) H 11/24/18 14:30 Ur Epithelial Cells 4 - 5 /hpf (0-5) 11/24/18 14:30 Urine Bacteria Mod /hpf (NONE) 11/24/18 14:30 - RAD Interpretation Radiology Orders: 11/24/18 14:07 CHEST PORTABLE [RAD] Stat 11/24/18 15:08 ANGIO CHEST PE PROTOCOL [CT] Stat - Medication Orders Current Medication Orders: Discontinued Medications Albuterol/Ipratropium (Duoneb 3 Mg/0.5 Mg (3 Ml) Ud) 3 ml IH STAT STA Stop: 11/24/18 14:09 Last Admin: 11/24/18 14:12 Dose: 3 ml Disposition/Present on Arrival - Present on Arrival Any Indicators Present on Arrival: No History of DVT/PE: No History of Uncontrolled Diabetes: No Urinary Catheter: No History of Decub. Ulcer: No History Surgical Site Infection Following: None - Disposition Have Diagnosis and Disposition been Completed?: Yes Diagnosis: Shortness of breath, Chest pain, CARVER (dyspnea on exertion) Disposition: HOSPITALIZED Disposition Time: 15:30 Patient Plan: Observation Patient Problems: Current Active Problems Problem Status Onset Chest pain Acute CARVER (dyspnea on exertion) Acute Shortness of breath Acute Condition: FAIR
--- NOTE | 2018-11-24 16:34 | CT ---
Date of service: 11/24/2018 PROCEDURE: CT Chest with contrast (Pulmonary Angiogram) HISTORY: shortness of breath COMPARISON: Plain radiograph performed earlier the same day. TECHNIQUE: Axial computed tomography images were obtained of the chest in the pulmonary arterial phase of enhancement. Coronal and sagittal reformatted images were created and reviewed. Intravenous contrast dose: Radiation dose: Total exam DLP = 459.0 mGy-cm. This CT exam was performed using one or more of the following dose reduction techniques: Automated exposure control, adjustment of the mA and/or kV according to patient size, and/or use of iterative reconstruction technique. FINDINGS: PULMONARY ARTERIES: There are no filling defects in the pulmonary arteries to suggest acute pulmonary embolism. AORTA: No acute findings. No thoracic aortic aneurysm. No aortic atherosclerotic calcification or mural plaque present. LUNGS: The lungs are well inflated and clear. No nodule, mass or pulmonary consolidation. PLEURAL SPACES: No effusion or pneumothorax. HEART: No cardiomegaly. No significant pericardial effusion. LYMPH NODES: No pathologic mediastinal or hilar lymphadenopathy. BONES, CHEST WALL: Within normal limits for the patient's age. No fracture or destructive lesion OTHER FINDINGS: None. IMPRESSION: No CTA evidence for acute pulmonary embolism. Clear lungs.
[2018-11-24] MEDS ORDERED: FORMOTEROL IH PRN (19:04)
[2018-11-24] MEDS ORDERED: MOMETASONE IH PRN (19:04)
[2018-11-24] MEDS: Albuterol-Ipratrop 3 mg / 0.5 (3 ml) UD IH SCH (19:24)
--- NOTE | 2018-11-24 19:29 | CARD ---
APPROVED REPORT Date of service: 11/24/2018 EKG Measurement Heart [id number] <Conclusion> Normal sinus rhythm T wave abnormality, consider anterior ischemia Prolonged QT Abnormal ECG
[2018-11-24] MEDS ORDERED: Pneumococcal 23-Valent Vaccine IM ONE (21:45)
[2018-11-24] MEDS: MethylPREDNISolone 40 mg Vial IVP SCH (22:47)
[2018-11-25] MEDS: Albuterol-Ipratrop 3 mg / 0.5 (3 ml) UD IH SCH ×4 (02:26→20:18)
[2018-11-25] MEDS: MethylPREDNISolone 40 mg Vial IVP SCH ×3 (09:11→21:43)
[2018-11-25 11:52] LABS: HDL CHOLESTEROL 41 mg/dL (29-60)
[2018-11-25 12:03] LABS: LDL CHOLESTEROL 129 mg/dL (0-129)
[2018-11-25 12:04] LABS: TROPONIN I < 0.01 ng/mL
--- NOTE | 2018-11-25 13:21 | RAD ---
Date of service: 11/25/2018 PROCEDURE: Right Knee Radiographs. HISTORY: c/o right knee pain COMPARISON: None. TECHNIQUE: Three views obtained. FINDINGS: BONES: Normal. No fracture. JOINTS: Normal. No osteoarthritis. JOINT EFFUSION: Moderate size OTHER FINDINGS: None. IMPRESSION: Moderate-sized joint effusion. No evidence of fracture
--- NOTE | 2018-11-25 14:12 | CON ---
DATE: 11/25/2018 PULMONARY CONSULT NOTE REFERRING PHYSICIAN: Ronda Méndez MD REASON FOR CONSULT: Shortness of breath, dyspnea on exertion, and history of asthma. HISTORY OF PRESENT ILLNESS: This is a 23-year-old female with past medical history significant for childhood asthma, who presented to the emergency room after being sent by her primary care physician for evaluation due to complaint of cough, shortness of breath, dyspnea on exertion, chest pain worsening over past 4 days. The patient reports the symptoms started with a sore throat and stuffy nose and then progressed into the shortness of breath and cough. The patient reports that she use nebulizer treatments and inhalers at home which did not improve symptoms. The patient also admits to smoking less than 10 cigarettes a day. The patient during in emergency room also complained of chest pressure. Today, the patient reports that she no longer feels chest pressure, but is having shortness of breath with and without exertion. Shortness of breath is worse with exertion, however, reports having productive cough, also complains of heartburn, complains of right knee pain that she has been having for sometime now, she reports. PAST MEDICAL HISTORY: As per history of present illness. FAMILY HISTORY: No significant cardiopulmonary disease reported. SOCIAL HISTORY: Smoker, less than 10 cigarettes a day. No alcohol abuse. No illicit drug use. ALLERGIES: PENICILLIN, SEAFOOD. MEDICATIONS: Reviewed. DuoNeb 3 mL inhalation every 6 hours, aspirin 81 mg daily, Pepcid 20 mg twice a day, Motrin 400 mg every 6 hours, Solu-Medrol 40 mg every 12 hours, and Dulera one puff inhalation p.r.n., shortness of breath. REVIEW OF SYSTEMS: No headache, rhinitis, chest pain, abdominal pain, nausea, vomiting, diarrhea, or leg swelling reported. The patient reports having shortness of breath with and without exertion, productive cough, complaining of acid reflux, heartburn, right knee pain, and occasional stuffy nose. Reports daytime fatigue. PHYSICAL EXAMINATION: VITAL SIGNS: Blood pressure 110/72, pulse 98, temperature 98, and oxygen saturation 96% nasal cannula. GENERAL: Obese female. No acute distress. HEENT: Moist mucous membranes. Mallampati score of 4. Crowded airway. NECK: Short and thick. RESPIRATORY: Decreased breath sounds bilaterally. CARDIOVASCULAR: S1 and S2. ABDOMEN: Soft and nontender. No distension. No organomegaly. EXTREMITIES: No bilateral lower extremity edema. NEUROLOGIC: Awake, alert, verbal, following commands. LABORATORY DATA: Reviewed. WBC 9.5, RBC 4.78, hemoglobin 12.2, hematocrit 37.7 and platelets 316. D-dimer 292. Sodium 138, potassium 3.9, chloride 104, carbon dioxide 25, anion gap 13, BUN 7, creatinine 0.7, GFR greater than 60, random glucose 139, calcium 9.2, total bilirubin 0.5. AST 27, ALT 20, alkaline phosphatase 79, lactate dehydrogenase 343, total creatine kinase 64, troponin less than 0.01, proBNP 19.2, total protein 8.1, albumin 3.9, globulin 4.1, albumin-globulin ratio 1.0, triglycerides 61, cholesterol 188, LDL cholesterol 129, HDL cholesterol 41, TSH 0.29. Urinalysis shows urine protein trace, urine leukocyte esterase small, urine WBC 5 to 10. Urine culture final, no growth. Chest x-ray shows no active pulmonary disease. EKG normal sinus rhythm, prolonged QT and T-wave abnormality. Chest CT shows no evidence for acute pulmonary embolism, clear lungs. IMPRESSION AND PLAN: Asthma exacerbation, possibly triggers by viral illness. Continue gastric prophylaxis. We will place the patient on Singulair 10 mg at bedtime, place the patient on Claritin antihistamine daily, Flonase nasal spray one spray at bedtime. We will increase Solu-Medrol to 40 mg every 8 hours at this time, place the patient on antibiotic therapy for chronic lung disease exacerbation. We will order right knee x-ray, relapse fracture due to complaint of right knee pain. I do suspect the patient may have sleep apnea. We will recommend sleep study as outpatient, recommend the patient have full pulmonary function test as outpatient to assess extensive chronic lung disease. Continue DuoNeb every [address] the patient on Lovenox for DVT prophylaxis. The patient's pending echocardiogram to be done. We will evaluate results when available. The patient was seen and examined with Dr. Almazan. Discussed assessment and plan as described above. The patient was seen and examined with Wilbur Ferris, nurse practitioner. Discussed assessment and plan as described above. Thank you for this consult. We will follow with you. Josy Bowles APN Jamal Almazan MD [facility] # [id number] [facility]
[2018-11-25 16:59] LABS: IRON 30 ug/dL (45-180)
[2018-11-25 17:09] LABS: % IRON SATURATION 10 % (20-55); TOTAL IRON BINDING CAPACITY 308 ug/dL (265-497)
--- NOTE | 2018-11-25 20:23 | CON ---
DATE: 11/25/2018 REASON FOR CONSULTATION: Cardiac evaluation, chest pain, acute exacerbation of COPD, possible cold. BRIEF CLINICAL HISTORY: This is a 23-year-old morbidly obese female with past medical history significant for asthma for many years on Dulera and Ventolin inhaler, came in with complaining of common cold, nose running 4-5 days and voice become hoarse and then started coughing dry, hacking cough and since become shortness of breath and coughing. The patient complaints of the chest pain as well. Denies any chest pain prior to that . 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 PAST MEDICAL HISTORY: Significant for asthma. SOCIAL HISTORY: Denies any smoking. Denies any history of alcohol abuse. CURRENT MEDICATIONS: The patient is taking albuterol inhaler as well as Dulera one puff p.r.n. ALLERGIES: ALLERGY TO PENICILLIN. ALLERGY TO SEAFOOD. PENICILLIN GIVES HIVES AND SEAFOOD GIVES SWELLING OF THE TONGUE. FAMILY HISTORY: Significant for coronary artery disease. REVIEW OF SYSTEMS: As per HPI. PHYSICAL EXAMINATION GENERAL: Height of the patient is 5 feet 6 inches, weight of the patient 276 pounds, body mass index of 44.5 kg/m2. VITAL SIGNS: Temperature afebrile, heart rate 90 and blood pressure 106/70. HEENT: PERRLA. Extraocular muscles intact. NECK: Supple. No carotid bruit or thyromegaly. CHEST: Clear to auscultation. HEART: S1 and S2 regular. ABDOMEN: Soft. EXTREMITIES: Clubbing and cyanosis negative. LABORATORY DATA: Blood workup; WBC 9.1, hemoglobin 12.3, hematocrit 37.7 and platelet count 316. Chemistry shows sodium 130, potassium 3.9, chloride 104, carbon dioxide 25, anion gap of 13, BUN 7 and creatinine 0.7. EKG shows normal sinus rhythm with acute ST-T changes noted. IMPRESSION AND PLAN: A 23-year-old female with past medical history of asthma, admitted with shortness of breath, nasal congestion, upper respiratory tract infection most likely symptoms precipitated upper respiratory tract infection on the top of the patient has baseline history of asthma precipitated, so far no evidence of acute myocardial infarction, but given risk factor will suggest one more troponin, lipid profile, TSH, hemoglobin A1c, echocardiogram to assess left ventricular function, and scheduled stress test in 4 weeks outpatient with patient able to walk on the [place]. Discussed with the patient, the patient agreed and will proceed for stress as outpatient and echocardiogram today and get one more troponin, lipid profile and TSH. If troponin remains negative, we will discontinue telemetry. The patient needs evaluation by Pulmonary, Dr. Almazan. We will follow with you. We will give one dose of ibuprofen also for pain. Thank you Dr. Méndez for providing us the opportunity in taking care of the patient, Noa Gardner. Jamal Yepez MD
[2018-11-25] MEDS ORDERED: Fluticasone Nasal 50 mcg/Spray NS SCH (22:00)
--- NOTE | 2018-11-26 00:05 | HP ---
DATE OF EXAM: 11/25/2018 The patient was seen and examined at the bedside on 11/25/2018. CHIEF COMPLAINT: Shortness of breath. HISTORY OF PRESENT ILLNESS: Ms. Noa Gardner is a 23-year-old female with a history of asthma, obesity, complaining of cough and shortness of breath and shortness of breath has been worsening over the past 4 days. No fever. No chills. No hematuria. No hematochezia. Cough is dry and complaining of chest pressure with coughing. No abdominal pain. The patient was actually seen in my office and we send her to [facility], they gave her couple of nebulizer, but still her lung was tight and was having dyspneic, we admitted the patient, called Pulmonary consult, and started Solu-Medrol. PAST MEDICAL HISTORY: Asthma, pneumonia, and cholecystectomy. FAMILY HISTORY: Father and mother noncontributory. HABITS: Light smoker less than 10 cigarettes per day. Alcohol; no. Substance abuse; no. ALLERGIES: THE PATIENT IS ALLERGIC TO PENICILLIN AND SEAFOOD. HOME MEDICATIONS: Albuterol and Dulera. REVIEW OF SYSTEMS: The patient is seen and examined at the bedside, still dyspneic. No fevers. No chills. No hematuria. No hematochezia. No headache or dizziness. No chest pain. No palpitation. LABORATORY DATA: White blood cell 9.5, hemoglobin 12.2, hematocrit 37.7, and platelets 316. Sodium 138, potassium 3.9, BUN 7, creatinine 0.7, and glucose 139. Troponin x2 is less than 0.01. ASSESSMENT AND PLAN: Ms. Noa Gardner is a 23-year-old lady has hyperglycemia, rule out hyperthyroidism, proteinuria, and urinary tract infection. X-ray of the knee done. CAT scan of the chest done. Chest x-ray done. History of childhood asthma, failed outpatient treatment, nebulizer treatment, then came to my office, I send her to the hospital, now admitted for asthma exacerbation, viral illness, Gastrointestinal and deep venous thrombosis prophylaxes given. Pulmonary consult called. Started on Singulair, Flonase, Solu-Medrol, and antibiotics. Complaining of right knee also. Jazz Musician put the patient on Lovenox for deep venous thrombosis prophylaxis. Repeat labs. We will follow up. Ronda Méndez MD
[2018-11-26] MEDS: Albuterol-Ipratrop 3 mg / 0.5 (3 ml) UD IH SCH ×3 (01:42→13:22)
[2018-11-26] MEDS: MethylPREDNISolone 40 mg Vial IVP SCH ×2 (05:24→13:13)
[2018-11-26 06:20] LABS: HEMOGLOBIN 12.5 g/dL (12.0-16.0); MEAN CELL VOLUME 78.9 fl (80.0-105.0); MEAN CORPUSCULAR HEMOGLOBIN 25.9 pg (25.0-35.0); MEAN CORPUSCULAR HGB CONC 32.8 g/dl (31.0-37.0); RBC 4.83 10^6/uL (3.5-6.1); WHITE BLOOD COUNT 22.9 10^3/uL (4.5-11.0)
[2018-11-26 06:58] LABS: BLOOD UREA NITROGEN 12 mg/dL (7-21); CALCIUM 9.5 mg/dL (8.4-10.5); GFR NON-AFRICAN AMERICAN > 60
--- NOTE | 2018-11-26 07:16 | CP.PCM.PN ---
Subjective - Date & Time of Evaluation Date of Evaluation: 11/26/18 Time of Evaluation: 06:45 - Subjective Subjective: Awake, alert, no distress ,feels okay Reason for consultation and follow up: Cardiac evaluation of shortness of breath associated with chest pressure and cough. History of asthma, morbidly obese. Seen and examined by me and Dr. Yepez Objective - Vital Signs/Intake and Output Vital Signs (last 24 hours): Temp Pulse Resp BP Pulse Ox 97.4 F L 99 H 20 117/75 95 11/25/18 16:59 11/25/18 16:59 11/25/18 16:59 11/25/18 16:59 11/25/18 16:59 Intake and Output: 11/26/18 11/26/18 06:59 18:59 Intake Total 1200 Balance 1200 - Medications Medications: Current Medications Albuterol/Ipratropium (Duoneb 3 Mg/0.5 Mg (3 Ml) Ud) 3 ml IH [id number] [facility] Last Admin: 11/26/18 01:42 Dose: 3 ml Aspirin (Ecotrin) 81 mg PO DAILY [facility] Last Admin: 11/25/18 09:10 Dose: 81 mg Azithromycin (Zithromax) 500 mg PO DAILY [facility]; Protocol Enoxaparin Sodium (Lovenox) 40 mg SC DAILY [facility]; Protocol Famotidine (Pepcid) 20 mg PO BID [facility] Last Admin: 11/25/18 17:59 Dose: 20 mg Fluticasone Propionate (Flonase) 1 actuation NS HS [facility] Last Admin: 11/25/18 21:44 Dose: 1 dose Loratadine (Claritin) 10 mg PO DAILY [facility] Methylprednisolone (Solu-Medrol) 40 mg IVP Q8 [facility] Last Admin: 11/26/18 05:24 Dose: 40 mg Montelukast Sodium (Singulair) 10 mg PO HS [facility] Last Admin: 11/25/18 21:42 Dose: 10 mg Non-Formulary Medication (Mometasone/Formoterol [Dulera 100 Mcg/5 Mcg Inhaler]) 1 puff IH PRN PRN PRN Reason: Shortness of Breath - Labs Labs: 11/26/18 05:30 11/26/18 05:30 - Constitutional Appears: Non-toxic, No Acute Distress - Head Exam Head Exam: NORMAL INSPECTION, NORMOCEPHALIC - Eye Exam Eye Exam: Normal appearance Pupil Exam: NORMAL ACCOMODATION - ENT Exam ENT Exam: Mucous Membranes Moist, Normal Exam - Respiratory Exam Respiratory Exam: Decreased Breath Sounds, Clear to Ausculation Bilateral, NORMAL BREATHING PATTERN - Cardiovascular Exam Cardiovascular Exam: +S1, +S2 - GI/Abdominal Exam GI & Abdominal Exam: Soft, Normal Bowel Sounds - Extremities Exam Extremities Exam: Full ROM, Normal Capillary Refill - Neurological Exam Neurological Exam: Alert, Awake, Oriented x3 - Psychiatric Exam Psychiatric exam: Normal Affect, Normal Mood - Skin Skin Exam: Dry, Normal Color, Warm Assessment and Plan - Assessment and Plan (Free Text) Assessment: A 23 year old morbidly obese female who came in to the ER due to worsening shortness of breath, dry cough and chest pressure. History of asthma. Troponin negative. Chest X ray showed normal. CT of chest negative for pulmonary embolism. Rule out acute myocardial ischemia. Shortness of breath due to exacerbation of asthma. Echo to evaluate LV function, will follow up results. Out patient stress test for risk stratification. Pulmonary on consult. Cardiac status stable. Plan: Feels better, denies shortness of breath Heart rate stable Blood pressure controlled Echo done Will follow up result of echo Cardiac status stable On ASA 81 mg daily, Lovenox 40 mg daily, Solumedrol 40 mg every 8 hours IV Continue current management Pulmonary on consult Out patient stress test Lifestyle modification Weight reduction Will follow up Plan and treatment discussed with Dr. Yepez
[2018-11-26 08:04] VITALS: RESP 18
--- NOTE | 2018-11-26 09:51 | CARD ---
APPROVED REPORT Date of service: 11/25/2018 EXAM: Two-dimensional and M-mode echocardiogram with Doppler and color Doppler. INDICATION Chest Pain 2D DIMENSIONS Left Atrium (2D)3.0 (1.6-4.0cm)IVSd1.4 (0.7-1.1cm) LVDd4.5 (3.9-5.9cm)PWd1.0 (0.7-1.1cm) LVDs2.9 (2.5-4.0cm)FS (%) 36.1 % LVEF (%)65.9 (>50%) M-Mode DIMENSIONS Aortic Root2.90 (2.2-3.7cm)Aortic Cusp Exc.1.80 (1.5-2.0cm) Aortic Valve AoV Peak Hocqemfw031.0cm/Juni Peak GR.5mmHg Mitral Valve E/A ratio0.0 TDI E/Lateral E'0.0E/Medial E'0.0 Tricuspid Valve TR Peak [id number] [id number] Peak Gr.14mmHg [id number] LEFT VENTRICLE The left ventricle is normal size. There is normal left ventricular wall thickness. The left ventricular function is normal. The left ventricular ejection fraction is within the normal range. There is normal LV segmental wall motion. The left ventricular diastolic function is normal. No left ventricle thrombus noted on this study. There is no ventricular septal defect visualized. There is no left ventricular aneurysm. There is no mass noted in the left ventricle. RIGHT VENTRICLE The right ventricle is normal size. There is normal right ventricular wall thickness. The right ventricular systolic function is normal. ATRIA The left atrium size is normal. The right atrium size is normal. The interatrial septum is intact with no evidence for an atrial septal defect. AORTIC VALVE The aortic valve is normal in structure. No aortic regurgitation is present. There is no aortic valvular stenosis. There is no aortic valvular vegetation. MITRAL VALVE The mitral valve is normal in structure. There is no mitral valve regurgitation noted. There is no mitral valve stenosis. There is no evidence of mitral valve prolapse. TRICUSPID VALVE The tricuspid valve leaflets are thickened , but open well. There is mild to moderate tricuspid regurgitation.RVSP-24 mmof Hg. There is no tricuspid valve stenosis. There is no tricuspid valve prolapse or vegetation. PULMONIC VALVE The pulmonary valve is normal in structure. There is no pulmonic valvular regurgitation. There is no pulmonic valvular stenosis. GREAT VESSELS The aortic root is normal in size. The ascending aorta is normal in size. The pulmonary artery is normal. The IVC is normal in size and collapses >50% with inspiration. PERICARDIAL EFFUSION There is no pleural effusion. There is no pericardial effusion. <Conclusion> Normal chamber Size. EF-65% Mild to moderate TR, RVSP-24 mmof Hg. The IVC is normal in size and collapses >50% with inspiration. There is no pericardial effusion.
[2018-11-26] MEDS ORDERED: Enoxaparin 40 mg Syringe SC SCH (10:00)
[2018-11-26 16:27] VITALS: BP 108/76; PULSE 86; TEMP 97.8; O2SAT 94
--- NOTE | 2018-11-26 17:13 | PN ---
DATE: 11/26/2018 PULMONARY PROGRESS NOTE REFERRING PHYSICIAN: Ronda Méndez MD SUBJECTIVE: The patient is seen sitting up in bed. No acute distress. No overnight events reported. The patient reports that she had oxygen removes earlier this morning. Oxygen saturation room air documented 94%. States that without the oxygen she felt more short of breath. So, oxygen was reapplied. Does state that her shortness of breath is improved some. No headache, rhinitis, chest pain, abdominal pain, nausea, vomiting, diarrhea, leg pain or leg swelling reported. OBJECTIVE: GENERAL: No acute distress. VITAL SIGNS: Blood pressure 106/66, pulse 59, temperature 98 and oxygen saturation 97% on nasal cannula. HEENT: Moist mucous membranes. Mallampati score of 4. Crowded airway. NECK: Short and thick. Supple. No JVD. RESPIRATORY: Decreased breath sound. No wheezing. CARDIOVASCULAR: S1 and S2. ABDOMEN: Soft and nontender. No distention. No organomegaly. EXTREMITIES: No bilateral lower extremity edema. NEUROLOGIC: Awake, alert, and verbal. Following commands. MEDICATIONS: Reviewed. Tylenol 650 every 6 hours p.r.n. for mild pain, DuoNeb 3 mL inhalation every 6 hours, aspirin 81 mg daily, Zithromax 500 mg daily, Lovenox 40 mg subcutaneous daily, Pepcid 20 mg twice a day, Flonase nasal spray at bedtime, Claritin 20 mg daily, Solu-Medrol 40 mg every 8 hours and Singulair 10 mg at bedtime. LABORATORY DATA: Reviewed. WBC 22.9, RBC 4.83, hemoglobin 12.5, hematocrit 38.1, and platelets 418. Sodium 140, potassium 4.0, chloride 103, carbon dioxide 24, anion gap 17, BUN 12, creatinine 0.7, GFR is greater than 60, random glucose 160, calcium 9.5. Iron 30, TIBC 308, percent saturation 10, TSH 0.67. Echocardiogram shows normal chamber pipe, ejection fraction 55% [id number] tricuspid regurgitation, RVSP 24. No pericardial effusion. Right knee x-ray shows moderate size joint effusion. No evidence of fracture. IMPRESSION AND PLAN: Asthma exacerbation, upper respiratory infection. Continue inhaled bronchodilators and gastric prophylaxis. Continue antihistamine and leukotriene inhibitors, Flonase nasal spray. We will decrease Solu-Medrol to 40 mg every [address] the patient on Tylenol p.r.n. for pain. We do suspect sleep apnea in this patient. Recommend the patient have sleep study as outpatient. Recommend the patient have full pulmonary function test to evaluate extensive chronic lung disease. Continue deep venous thrombosis prophylaxis. Continue Cardiology followup. The patient was seen and examined with Dr. Almazan. Discussed assessment and plan as described above. The patient was seen and examined by Josy Bowles, nurse practitioner. Discussed assessment and plan as described above. Thank you for this consult. We will follow with you. Josy Bowles APN Jamal Almazan MD [facility]
[2018-11-26] MEDS ORDERED: MethylPREDNISolone 40 mg Vial IVP SCH (22:00)
== END 2018-11-26 18:26 | disposition home or self-care (01) ==
LOC: ED 13:25 → ERH 17:05 → 2RNO 18:40 → 3RSO 11-25 16:29
PROVIDERS: ADMIT Internal Medicine; ATTEND Internal Medicine
DX: J45.901 Unspecified asthma with (acute) exacerbation (principal); J44.1 Chronic obstructive pulmonary disease with (acute) exacerbation; J06.9 Acute upper respiratory infection, unspecified; E66.01 Morbid (severe) obesity due to excess calories; Z68.41 Body mass index [BMI] 40.0-44.9, adult; F17.210 Nicotine dependence, cigarettes, uncomplicated; Z79.51 Long term (current) use of inhaled steroids; Z90.49 Acquired absence of other specified parts of digestive tract; Z82.49 Family history of ischemic heart disease and other diseases of the circulatory system
CPT/HCPCS: 36415; 71045; 71275; 73560; 80048; 80053; 80061; 81001; 81025; 82550; 82607; 82746; 83036; 83540; 83550; 83615; 83880; 84443; 84484; 85025; 85027; 85378; 87086; 93005; 93306; 94640; 94760; 96374; 99285; G0378; J1650; J2920; J2930; Q9967